=== PATIENT | male | born 1980 | race Native Hawaiian/Other Pacific Islander ===

== ENCOUNTER 2019-12-16 08:48 | Outpatient (CLI) | payer BC | END 2019-12-16 21:43 | disposition home or self-care (01) | LOC: RAD 08:48 | DX: R05 Cough (principal) ==

== ENCOUNTER 2022-07-24 15:44 | Outpatient (CLI) | payer BC | END 2022-07-24 23:07 | disposition home or self-care (01) | LOC: RAD 15:44 | PROVIDERS: ATTEND Nurse Practitioner Family | DX: M54.6 Pain in thoracic spine (principal); M54.59 Other low back pain; M54.2 Cervicalgia ==